=== PATIENT | female | born 1970 | race Caucasian/White ===

== ENCOUNTER 2020-07-08 14:49 | Inpatient (IN) ==
[2020-07-08] MEDS ORDERED: Naloxone 0.4 MG/ML INJ IVP PRN (18:23)
[2020-07-08] MEDS ORDERED: Perflutren Lipid Microsphere 1.3 ML in 0.9 % Sodium Chloride 8.7 ML IVP PRN (19:19)
[2020-07-08] MEDS ORDERED: *HR* Heparin 5,000 UNIT/ML VIAL IVP ONE (19:48)
[2020-07-08] MEDS ORDERED: *HR* Heparin 5,000 UNIT/ML VIAL IVP PRN ×2 (19:48)
[2020-07-08 20:13] LABS: Hematocrit 33.1 % (35.3-44.9); Mean Corpuscular HGB Conc 33.2 g/dL (31.6-35.5); Mean Corpuscular Hemoglobin 27.9 pg (28.0-33.3); Mean Platelet Volume 10.8 fL (9.4-12.4); Platelet Count 265 K/mcL (140-400); Red Blood Count 3.94 M/mcL (3.82-4.97); Red Cell Distribution Width 15.4 % (11.5-14.5); White Blood Count 12.2 K/mcL (4.3-11.1)
[2020-07-08] MEDS: Heparin 25,000UNIT/250ML 1/2NS 25,000 UNIT/250 ML IV.SOLN IVC SCH (20:15)
[2020-07-08 20:28] LABS: Heparin anti-factor XA UFH 0.39 IU/mL (0.30-0.70); INR 1.1; Prothrombin Time 12.6 Seconds (9.4-12.1)
[2020-07-08 20:30] LABS: Activated Partial Thrombo Time 33.2 Seconds (26.0-36.0)
[2020-07-08] MEDS ORDERED: *HR* LORazepam 1 MG TABLET PO ONE (20:37)
[2020-07-08 21:15] LABS: Adenovirus Not Detected (Not Detect); Bordetella Pertussis Not Detected (Not Detect); Chlamydophila pneumoniae Not Detected (Not Detect); Coronavirus 229E Not Detected (Not Detect); Coronavirus HKU1 Not Detected (Not Detect); Coronavirus NL63 Not Detected (Not Detect); Coronavirus OC43 Not Detected (Not Detect); Human Metapneumovirus Not Detected (Not Detect); Human Rhinovirus/Enterovirus DETECTED (Not Detect); Influenza A Subtype 2009 H1 Not Detected (Not Detect); Influenza B Not Detected (Not Detect); Mycoplasma pneumoniae Not Detected (Not Detect); Parainfluenza Virus 1 Not Detected (Not Detect); Parainfluenza Virus 2 Not Detected (Not Detect); Parainfluenza Virus 3 Not Detected (Not Detect); Parainfluenza Virus 4 Not Detected (Not Detect); Respiratory Syncytial Virus Not Detected (Not Detect); SARS-CoV-2 Not Detected (Not Detect)
[2020-07-09 03:05] LABS: Basophils % 0.2 %; Eosinophils % 0.3 %; Hematocrit 33.3 % (35.3-44.9); Hemoglobin 10.7 g/dL (11.5-15.4); Immature Granulocytes % 0.4 % (0-4); Lymphocytes # 1.8 K/mcL (0.6-4.6); Lymphocytes % 18.9 %; Mean Corpuscular HGB Conc 32.1 g/dL (31.6-35.5); Mean Corpuscular Hemoglobin 27.5 pg (28.0-33.3); Mean Corpuscular Volume 85.6 fL (83.0-100.0); Mean Platelet Volume 11.9 fL (9.4-12.4); Monocytes # 0.6 K/mcL (0.0-1.3); Monocytes % 5.6 %; Neutrophils # 7.3 K/mcL (1.6-8.9); Platelet Count 238 K/mcL (140-400); Red Blood Count 3.89 M/mcL (3.82-4.97); Red Cell Distribution Width 15.5 % (11.5-14.5); Segmented Neutrophils % 74.6 %; White Blood Count 9.7 K/mcL (4.3-11.1)
[2020-07-09 03:23] LABS: BUN/Creatinine Ratio 22 (6-26); Blood Urea Nitrogen 21 mg/dL (6-20); Calcium 8.7 mg/dL (8.6-10.3); Carbon Dioxide 24 mEq/L (23-29); Chloride 102 mEq/L (98-107); Glucose 98 mg/dL (70-105); Osmolality,Calculated 285 (280-300); Potassium 3.3 mEq/L (3.5-5.1); Sodium 136 mEq/L (136-145); eGFR For African Americans > 60 (> 60); eGFR For Non-African Americans > 60 (> 60)
[2020-07-09] MEDS ORDERED: Nitroglycerin 0.4 MG TAB.SUBL SL ONE (04:11)
[2020-07-09] MEDS: Nitroglycerin 0.4 MG TAB.SUBL SL PRN ×2 (04:12→04:18)
[2020-07-09] MEDS ORDERED: *HR* LORazepam 2 MG/ML VIAL IVP ONE (04:30)
[2020-07-09] MEDS ORDERED: Furosemide 20 MG/2 ML VIAL IVP ONE (04:34)
[2020-07-09] MEDS: Furosemide 40 MG/4 ML VIAL IVP SCH (08:32)
[2020-07-09] MEDS ORDERED: *HR* LORazepam 2 MG/ML VIAL IVP PRN (11:07)
[2020-07-09] MEDS: Aspirin Enteric Coated 81 MG Tablet PO SCH (11:41)
[2020-07-09] MEDS: lisinopriL 5 MG TABLET PO SCH (12:58)
[2020-07-09] MEDS: *HR* LORazepam 0.5 MG TABLET PO SCH ×2 (12:59→20:40)
[2020-07-09] MEDS ORDERED: Furosemide 40 MG/4 ML VIAL IVP ONE (14:00)
[2020-07-09] MEDS ORDERED: *HR* LORazepam 0.5 MG TABLET PO SCH (15:00)
[2020-07-10] MEDS: Heparin 25,000UNIT/250ML 1/2NS 25,000 UNIT/250 ML IV.SOLN IVC SCH (02:51)
[2020-07-10 04:33] LABS: Basophils % 0.6 %; Eosinophils # 0.1 K/mcL (0.0-0.6); Eosinophils % 1.4 %; Hematocrit 39.9 % (35.3-44.9); Immature Granulocytes % 0.5 % (0-4); Lymphocytes # 1.5 K/mcL (0.6-4.6); Lymphocytes % 22.2 %; Mean Corpuscular HGB Conc 32.3 g/dL (31.6-35.5); Mean Corpuscular Hemoglobin 27.7 pg (28.0-33.3); Mean Corpuscular Volume 85.8 fL (83.0-100.0); Mean Platelet Volume 11.3 fL (9.4-12.4); Monocytes # 0.6 K/mcL (0.0-1.3); Monocytes % 8.5 %; Neutrophils # 4.4 K/mcL (1.6-8.9); Platelet Count 277 K/mcL (140-400); Red Blood Count 4.65 M/mcL (3.82-4.97); Red Cell Distribution Width 15.6 % (11.5-14.5); Segmented Neutrophils % 66.8 %; White Blood Count 6.6 K/mcL (4.3-11.1)
[2020-07-10 04:36] LABS: Hemoglobin 12.9 g/dL (11.5-15.4)
[2020-07-10 04:56] LABS: BUN/Creatinine Ratio 21 (6-26); Blood Urea Nitrogen 22 mg/dL (6-20); Carbon Dioxide 29 mEq/L (23-29); Chloride 98 mEq/L (98-107); Glucose 91 mg/dL (70-105); Osmolality,Calculated 283 (280-300); Potassium 3.3 mEq/L (3.5-5.1); Sodium 135 mEq/L (136-145); eGFR For African Americans > 60 (> 60); eGFR For Non-African Americans 55 (> 60)
[2020-07-10 04:58] LABS: Albumin 3.6 g/dL (3.5-5.7); Albumin/Globulin Ratio 1.2 (1.1-2.2); Bilirubin,Direct 0.1 mg/dL (0.0-0.2); Bilirubin,Indirect 0.2 mg/dL (0.0-1.0); Bilirubin,Total 0.3 mg/dL (0.3-1.0); Globulin 3.1 g/dL (2.4-3.5); Magnesium 2.1 mg/dL (1.6-2.6); Phosphorous 3.3 mg/dL (2.7-4.5); Total Protein 6.7 g/dL (6.4-8.9)
[2020-07-10 05:06] LABS: Thyroid Stimulating Hormone 2.689 mcIU/mL (0.340-5.600)
[2020-07-10 05:16] LABS: Folate 12.6 ng/mL (3.0-16.0)
[2020-07-10] MEDS ORDERED: Potassium Chloride 40 MEQ, Lidocaine 1% 2 ML in 0.9 % Sodium Chloride 500 ML IVPB ONE (07:37)
[2020-07-10] MEDS: Aspirin Enteric Coated 81 MG Tablet PO SCH (08:10)
[2020-07-10] MEDS: Furosemide 40 MG/4 ML VIAL IVP SCH (08:10)
[2020-07-10] MEDS: *HR* LORazepam 0.5 MG TABLET PO SCH ×2 (08:10→14:22)
[2020-07-10] MEDS: lisinopriL 5 MG TABLET PO SCH (08:10)
[2020-07-10] MEDS ORDERED: Metoprolol XL (24 HR) Succ 25 MG TAB.ER.24H PO SCH (09:00)
[2020-07-10] MEDS ORDERED: *HR* Midazolam HCl 2 MG/2 ML VIAL ONE (10:20)
[2020-07-10] MEDS ORDERED: *HR* FentaNYL (PF) 100 MCG/2 ML VIAL ONE ×2 (10:20→11:20)
[2020-07-10] MEDS ORDERED: 0.9 % Sodium Chloride 2,000 ML ONE (10:20)
[2020-07-10] MEDS ORDERED: *HR* Heparin 10,000 UNIT/10 ML VIAL ONE (10:21)
[2020-07-10] MEDS ORDERED: Heparin 1,000 UNITS/500 mL 500 ML ONE (10:21)
[2020-07-10] MEDS ORDERED: ISOVUE-370 200 ML INFUS..BTL ONE (10:21)
[2020-07-10] MEDS ORDERED: Nitroglycerin 1,000 MCG/10 ML VIAL IV ONE (10:21)
[2020-07-10] MEDS ORDERED: *HR* LORazepam 0.5 MG TABLET PO PRN (15:18)
[2020-07-10 16:39] VITALS: BP 91/67
== END 2020-07-10 20:00 | disposition short-term general hospital (02) | DRG 280 ==
LOC: 2NENU → SUATTDRO 19:17
PROVIDERS: ADMIT Internal Medicine; ATTEND Pharmacist